=== PATIENT | male | born 1940 | race Caucasian/White ===

== ENCOUNTER 2022-03-10 09:30 | Day surgery (SDC) | payer MEDICARE, OTHER ==
[~2022-03-10] VITALS: Ht 175.3 cm; Wt 79.3 kg
[~2022-03-10 09:30] MED LIST: ASPI81CH; Advil200 M1; FINA5; FISH1000; LOVA40; TAMS.4ER
[2022-03-10] MEDS ORDERED: Betamethasone D30 ML (10:18)
[2022-03-10] MEDS ORDERED: ERGO400 (10:18)
[2022-03-10] MEDS ORDERED: PRESERVISION A1 EAC2 (10:19)
[2022-03-10] MEDS ORDERED: GLUCOSAMINE-CH1 EA48 (10:19)
== END 2022-03-10 12:18 | disposition home or self-care (01) ==
LOC: ORSCSDS 09:30
PROVIDERS: Internal Medicine Gastroenterology
PROC: 0DBL8ZX Excision of Transverse Colon, Via Natural or Artificial Opening Endoscopic, Diagnostic (ICD-10-PCS; principal; 2022-03-10 11:00)
PROC: 0DBM8ZX Excision of Descending Colon, Via Natural or Artificial Opening Endoscopic, Diagnostic (ICD-10-PCS; principal; 2022-03-10 11:00)
PROC: 0DBH8ZX Excision of Cecum, Via Natural or Artificial Opening Endoscopic, Diagnostic (ICD-10-PCS; principal; 2022-03-10 11:00)
PROC: 0DBK8ZX Excision of Ascending Colon, Via Natural or Artificial Opening Endoscopic, Diagnostic (ICD-10-PCS; principal; 2022-03-10 11:00)
PROC: 0DBN8ZX Excision of Sigmoid Colon, Via Natural or Artificial Opening Endoscopic, Diagnostic (ICD-10-PCS; principal; 2022-03-10 11:00)
DX: Z12.11 Encounter for screening for malignant neoplasm of colon (principal); Z86.010 Personal history of colon polyps; D12.3 Benign neoplasm of transverse colon; D12.0 Benign neoplasm of cecum; D12.2 Benign neoplasm of ascending colon; D12.4 Benign neoplasm of descending colon; D12.5 Benign neoplasm of sigmoid colon; K63.5 Polyp of colon; K57.30 Diverticulosis of large intestine without perforation or abscess without bleeding; K64.8 Other hemorrhoids; F17.210 Nicotine dependence, cigarettes, uncomplicated; Z79.899 Other long term (current) drug therapy
CPT/HCPCS: 88305; J2704; J7120

== ENCOUNTER 2025-04-28 09:10 | Day surgery (SDC) | payer MEDICARE, OTHER ==
[~2025-04-28] VITALS: Ht 175.3 cm; Wt 86.2 kg
[2025-04-28] VITALS (14 sets, daily range): BP systolic 119–190; BP diastolic 58–98
[~2025-04-28 09:10] MED LIST changes: +Betamethasone D30 ML; +Bupivacaine 0.5% HCl 5 MG/ML 30MLVIAL ONE; +CeFAZolin Sodium 2,000 MG in NS 100 ML IV SCH; +ERGO400; +ERGO50000 PO; +FINA5 PO; +GLUCOSAMINE-CH1 EA48 PO; +PRESERVISION A1 EAC2 PO; -TAMS.4ER; +TAMS.4ER PO
[2025-04-28] MEDS ORDERED: HydrALAZINE HCl 20 MG / ML 1ML Vial ONE (09:36)
[2025-04-28] MEDS ORDERED: LOSA25 (09:38)
[2025-04-28] MEDS ORDERED: Rocuronium Bromide 10 MG/ML 5ML Injection IV ONE (10:05)
[2025-04-28] MEDS ORDERED: HydrALAZINE HCl 20 MG / ML 1ML Vial IV ONE (10:05)
[2025-04-28] MEDS ORDERED: FentaNYL Citrate 50 MCG/ML 2 ML Injection ONE ×3 (10:07→14:26)
[2025-04-28] MEDS ORDERED: Lidocaine 2% Jelly Uro-Jet ONE (10:21)
[2025-04-28] MEDS ORDERED: Phenylephrine HCl 100 MCG/ML-NS 10MLSYR (1MG/10ML) ONE ×2 (10:27→13:42)
[2025-04-28] MEDS ORDERED: FentaNYL Citrate 50 MCG/ML 2 ML Injection IV PRN ×2 (11:00→11:05)
[2025-04-28] MEDS ORDERED: HydrALAZINE HCl 20 MG / ML 1ML Vial IV PRN (11:05)
[2025-04-28] MEDS ORDERED: HYDROmorphone HCl/Pf 1MG SYR IV PRN ×2 (11:10)
[2025-04-28] MEDS ORDERED: Labetalol HCL 5 MG/ML 4ML Injection (Single Dose) IV PRN (11:10)
[2025-04-28] MEDS ORDERED: Ondansetron HCl 2 MG / ML 2ML Vial IV PRN (11:10)
--- NOTE | 2025-04-28 11:10 | NUR ---
04/28/25 1110 Tyree,Henny HONG CATHETER PLACED BY DUE TO DIFFICULTY WITH INSERTION. 2% LIDOCAINE UROJET USED DURING HONG PLACEMENT.
[2025-04-28] MEDS ORDERED: CeFAZolin Sodium 2,000 MG VIAL ONE (13:31)
[2025-04-28] MEDS ORDERED: Sugammadex Sodium 200 MG/2ML SDV (100 MG/ML) ONE (13:40)
[2025-04-28] MEDS ORDERED: OxyCODONE 5 mg/Acetamin 325 mg TABLET PO PRN (14:25)
== END 2025-04-28 23:00 | disposition home or self-care (01) ==
LOC: ORSCMMR 09:10 → ORD 10:30 → ORSCMMR 10:30
PROVIDERS: Surgery
PROC: 0YUA4JZ Supplement Bilateral Inguinal Region with Synthetic Substitute, Percutaneous Endoscopic Approach (ICD-10-PCS; principal; 2025-04-28 10:30)
PROC: 3E0T3BZ Introduction of Anesthetic Agent into Peripheral Nerves and Plexi, Percutaneous Approach (ICD-10-PCS; principal; 2025-04-28 10:30)
PROC: 0YQ74ZZ Repair Right Femoral Region, Percutaneous Endoscopic Approach (ICD-10-PCS; principal; 2025-04-28 10:30)
PROC: 8E0W4CZ Robotic Assisted Procedure of Trunk Region, Percutaneous Endoscopic Approach (ICD-10-PCS; principal; 2025-04-28 10:30)
PROC: 0WUF4JZ Supplement Abdominal Wall with Synthetic Substitute, Percutaneous Endoscopic Approach (ICD-10-PCS; principal; 2025-04-28 10:30)
DX: K40.00 Bilateral inguinal hernia, with obstruction, without gangrene, not specified as recurrent (principal); K42.0 Umbilical hernia with obstruction, without gangrene; K41.30 Unilateral femoral hernia, with obstruction, without gangrene, not specified as recurrent; I10 Essential (primary) hypertension; E11.9 Type 2 diabetes mellitus without complications; N40.0 Benign prostatic hyperplasia without lower urinary tract symptoms; Z79.899 Other long term (current) drug therapy
CPT/HCPCS: 82947; A9270; C1781; J0360; J0690; J2371; J2405; J2704; J3010; J7120